=== PATIENT | male | born 1970 | race African-American/Black ===

== ENCOUNTER 2018-02-15 08:59 | Inpatient (IN) | payer OTHER ==
[2018-02-15 10:10] VITALS: BMI 28.1
--- NOTE | 2018-02-15 13:33 | HP ---
CIWA Score - CIWA Score Nausea/Vomitin-Mild Nausea/No Vomiting Muscle Tremors: 4-Moderate,w/Arms Extend Anxiety: 4-Mod. Anxious/Guarded Agitation: 4-Moderately Restless Paroxysmal Sweats: 1-Minimal Palms Moist Orientation: 1-Uncertain about Date Tacttile Disturbances: 1-Very Mild Itch/Numbness Auditory Disturbances: 0-None Visual Disturbances: 0-None Headache: 2-Mild CIWA-Ar Total Score: 18 Admission ROS BHS - HPI Chief Complaint: alcohol withdrawal sx Allergies/Adverse Reactions: Allergies Allergy/AdvReac Type Severity Reaction Status Date / Time No Known Allergies Allergy Verified 02/15/18 10:25 History of Present Illness: 47 years old male with long history of alcohol nicotine dependence has depression hypertension is admitted to detox Exam Limitations: No Limitations - Ebola screening Have you traveled outside of the country in the last 21 days: No Have you had contact with anyone from an Ebola affected area: No Have you been sick,other than usual withdrawal symptoms: No Do you have a fever: No - Review of Systems Constitutional: Changes in sleep, Weight Stable EENT: reports: No Symptoms Reported Respiratory: reports: No Symptoms reported Cardiac: reports: No Symptoms Reported GI: reports: Nausea, Poor Fluid Intake, Abdominal cramping : reports: No Symptoms Reported Musculoskeletal: reports: No Symptoms Reported Integumentary: reports: No Symptoms Reported Neuro: reports: Tremors Endocrine: reports: No Symptoms Reported Hematology: reports: No Symptoms Reported Psychiatric: reports: Judgement Intact, Anxious, Depressed Other Systems: Reviewed and Negative Patient History - Patient Medical History Hx Anemia: No Hx Asthma: No Hx Chronic Obstructive Pulmonary Disease (COPD): No Hx Cancer: No Hx Cardiac Disorders: No Hx Congestive Heart Failure: No Hx Hypertension: Yes (non compliant with meds.) Hx Hypercholesterolemia: No Hx Pacemaker: No HX Cerebrovascular Accident: No Hx Seizures: No Hx Dementia: No Hx Diabetes: No Hx Gastrointestinal Disorders: No Hx Liver Disease: No Hx Genitourinary Disorders: No Hx Sexually Transmitted Disorders: Yes (Tx for syphillis and gonnorhea.) Hx Renal Disease (ESRD): No Hx Thyroid Disease: No Hx Human Immunodeficiency Virus (HIV): No Hx Hepatitis C: No Hx Depression: Yes Hx Suicide Attempt: No Hx Bipolar Disorder: No Hx Schizophrenia: No - Patient Surgical History Past Surgical History: Yes Hx Orthopedic Surgery: Yes (L wrist sx and L knee sx in [facility]2014) Anesthesia Reaction: No - PPD History Previous Implant?: Yes Documented Results: Negative w/o proof Implanted On Prior [facility] Admission?: No PPD to be Administered?: Yes - Smoking Cessation Smoking history: Current some day smoker Have you smoked in the past 12 months: Yes Aproximately how many cigarettes per day: 3 Cigars Per Day: 0 Hx Chewing Tobacco Use: No Initiated information on smoking cessation: Yes 'Breaking Loose' booklet given: 02/15/18 - Substance & Tx. History Hx Alcohol Use: Yes Hx Substance Use: No Substance Use Type: Alcohol Hx Substance Use Treatment: Yes (2015 [facility]) - Substances Abused Alcohol Route: Oral Frequency: Daily Amount used: 2 pints vodka Age of first use: 12 Date of Last Use: 02/15/18 Family Disease History - Family Disease History Family Disease History: Other: Father (deceasd) Other Family History: only child Admission Physical Exam [facility] - Vital Signs Vital Signs: Vital Signs - 24 hr 02/15/18 10:08 Temperature 98.6 F Pulse Rate 84 Respiratory 20 Rate Blood Pressure 170/112 - Physical General Appearance: Yes: Appropriately Dressed, Mild Distress, Tremorous, Irritable, Sweating, Anxious HEENTM: Yes: Hearing grossly Normal, Normocephalic, Normal Voice Respiratory: Yes: Chest Non-Tender, Lungs Clear, Normal Breath Sounds, No Respiratory Distress, No Accessory Muscle Use Neck: Yes: Supple, Trachea in good position Breast: Yes: Breasts Symetrical, No Discharge Cardiology: Yes: Regular Rhythm, Regular Rate, S1, S2 Abdominal: Yes: Normal Bowel Sounds, Non Tender, Flat Genitourinary: Yes: Within Normal Limits Back: Yes: Normal Inspection Musculoskeletal: Yes: full range of Motion, Gait Steady Extremities: Yes: Normal Inspection, Normal Range of Motion, Non-Tender, Tremors Neurological: Yes: Alert, Motor Strength 5/5, Normal Response, Depressed Affect Integumentary: Yes: Warm Lymphatic: Yes: Within Normal Limits - Diagnostic (1) Alcohol dependence with uncomplicated withdrawal Current Visit: Yes Status: Acute (2) Hypertension Current Visit: Yes Status: Chronic Qualifiers: Hypertension type: essential hypertension Qualified Code(s): I10 - Essential (primary) hypertension (3) Nicotine dependence Current Visit: Yes Status: Acute Qualifiers: Nicotine product type: cigarettes Substance use status: in withdrawal Qualified Code(s): F17.213 - Nicotine dependence, cigarettes, with withdrawal (4) Depression (emotion) Current Visit: Yes Status: Acute Qualifiers: Depression Type: dysthymia Qualified Code(s): F34.1 - Dysthymic disorder Cleared for Admission [facility] - Detox or Rehab [facility] Level of Care: Medically Managed Detox Regimen/Protocol: Librium S Breath Alcohol Content Breath Alcohol Content: 0.276 Urine Drug Screen - Results Drug Screen Negative: Yes
[2018-02-15] MEDS ORDERED: ACETAMINOPHEN 325 MG TABLET (FP) PO PRN (13:36)
[2018-02-15] MEDS ORDERED: LOPERAMIDE HCL 2 MG CAPSULE PO PRN (13:36)
[2018-02-15] MEDS ORDERED: MAGNESIUM CITRATE 300 ML BOTTLE PO PRN (13:36)
[2018-02-15] MEDS ORDERED: IBUPROFEN 400 MG TABLET (FP) PO PRN (13:36)
[2018-02-15] MEDS ORDERED: MAG HYDROX/AL HYDROX/SIMETH 30 ML UNIT-DOSE CUP PO PRN (13:36)
[2018-02-15] MEDS ORDERED: NICOTINE POLACRILEX 2 MG GUM BUC PRN (13:36)
[2018-02-15] MEDS ORDERED: MENTHOL/PHENOL 1 EACH UD MM PRN (13:36)
[2018-02-15] MEDS ORDERED: P-EPHED 60MG/TRIPROLIDI 2.5MG TABLET PO PRN (13:36)
[2018-02-15] MEDS ORDERED: guaiFENesin/D-METHORPHAN HB 10 ML UNIT-DOSE CUPS PO PRN (13:36)
[2018-02-15] MEDS ORDERED: chlordiazePOXIDE HCL 25 MG CAPSULE PO PRN (13:36)
[2018-02-15] MEDS ORDERED: MAGNESIUM HYDROX 2400MG/30ML ORAL SUSPENSION 30 ML CUP PO PRN (13:36)
[2018-02-15] MEDS: amLODIPine BESYLATE 10 MG TABLET (FP) PO SCH (15:51)
[2018-02-15] MEDS: LISINOPRIL 10 MG TABLET (FP) PO SCH ×2 (15:51→22:14)
[2018-02-15] MEDS: NICOTINE 14 MG/24 HOURS TOPICAL PATCH TD SCH (15:51)
[2018-02-15] MEDS: chlordiazePOXIDE HCL 25 MG CAPSULE PO SCH ×2 (17:22→22:14)
--- NOTE | 2018-02-15 17:27 | CONSULT ---
[facility] Psychiatric Consult - Data Date of interview: 02/15/18 Admission source: [facility] Identifying data: Patient is a 47 year old single male, without kids, unemployed (receiving food stamps), and residing with mother. This is patient's first admission to detox at [facility]. Pt. admitted to for alcohol dependence. Substance Abuse History: Smoking Cessation. Smoking history: Current some day smoker. Have you smoked in the past 12 months: Yes. Aproximately how many cigarettes per day: 3. Cigars Per Day: 0. Hx Chewing Tobacco Use: No. Initiated information on smoking cessation: Yes. 'Breaking Loose' booklet given : 02/15/18. - Substance & Tx. History. Hx Alcohol Use: Yes. Hx Substance Use : No. Substance Use Type: Alcohol. Hx Substance Use Treatment: Yes (2015 [facility]). - Substances Abused. Alcohol. Route: Oral. Frequency: Daily. Amount used: 2 pints vodka. Age of first use: 12. Date of Last Use: 02/15/18 Medical History: Tx for syphillis and gonnorhea, hypertension, L wrist sx and L knee sx in [facility]2014 Psychiatric History: Patient denies h/o psychiatric hospitalizations, outpatient care, and suicide attempt. Physical/Sexual Abuse/Trauma History: Denies. Mental Status Exam - Mental Status Exam Alert and Oriented to: Time, Place, Person Cognitive Function: Good Patient Appearance: Well Groomed Mood: Hopeful Affect: Mood Congruent Patient Behavior: Cooperative Speech Pattern: Appropriate Voice Loudness: Normal Thought Process: Intact, Goal Oriented Thought Disorder: Not Present Hallucinations: Denies Suicidal Ideation: Denies Homicidal Ideation: Denies Insight/Judgement: Poor Sleep: Fair Appetite: Fair Muscle strength/Tone: Normal Gait/Station: Normal Psychiatric Findings - Problem List ([place] 1, 2,3) (1) Alcohol dependence with uncomplicated withdrawal Current Visit: Yes Status: Acute (2) Nicotine dependence Current Visit: Yes Status: Chronic Qualifiers: Nicotine product type: cigarettes Substance use status: in withdrawal Qualified Code(s): F17.213 - Nicotine dependence, cigarettes, with withdrawal - Initial Treatment Plan Initial Treatment Plan: Psychoeducation provided. Detoxification in progress. Observation.
[2018-02-15] MEDS: THIAMINE HCL 100 MG TABLET (FP) PO SCH (22:14)
[2018-02-16] MEDS: chlordiazePOXIDE HCL 25 MG CAPSULE PO SCH ×4 (06:42→22:39)
[2018-02-16] MEDS ORDERED: ONDANSETRON *ODT* 4 MG TABLET SL ONE (09:05)
[2018-02-16] MEDS ORDERED: chlordiazePOXIDE HCL 25 MG CAPSULE PO ONE (09:06)
[2018-02-16] MEDS: LABETALOL HCL 100 MG TABLET (FP) PO SCH ×3 (09:30→22:40)
[2018-02-16] MEDS: LISINOPRIL 10 MG TABLET (FP) PO SCH ×2 (09:30→22:40)
[2018-02-16] MEDS: amLODIPine BESYLATE 10 MG TABLET (FP) PO SCH (09:30)
[2018-02-16 10:25] LABS: HEMOGLOBIN 12.1 GM/dL (11.7-16.9); MCH 35.3 pg (25.7-33.7); MCHC 33.5 g/dl (32.0-35.9); MEAN CELL VOLUME 105.2 fl (80-96); MEAN PLT VOLUME 9.8 fl (7.5-11.1); PLATELET COUNT 106 K/MM3 (134-434); RBC 3.42 M/mm3 (4.00-5.60); RDW 14.5 % (11.9-15.9); WHITE BLOOD COUNT 2.4 K/mm3 (4.0-10.0)
[2018-02-16 10:53] LABS: CHLORIDE 104 mmol/L (98-107); POTASSIUM 3.3 mmol/L (3.5-5.1); SODIUM 143 mmol/L (136-145)
[2018-02-16 11:13] LABS: ALBUMIN 3.9 g/dl (3.4-5.0); ALK PHOS 81 U/L (45-117); ANION GAP 11 (8-16); BILIRUBIN,TOTAL 0.5 mg/dL (0.2-1.0); BLOOD UREA NITROGEN 7 mg/dL (7-18); CALCIUM 8.5 mg/dL (8.5-10.1); CO2 28 mmol/L (21-32); CREATININE 0.9 mg/dL (0.7-1.3); GLUCOSE,RANDOM 107 mg/dL (74-106); SGOT/AST 288 U/L (15-37); SGPT/ALT 141 U/L (12-78)
[2018-02-16] MEDS: PRENATAL VITAMINS W/ FOLIC ACID TABLET (FP) PO SCH (11:50)
[2018-02-16] MEDS: NICOTINE 14 MG/24 HOURS TOPICAL PATCH TD SCH (11:53)
--- NOTE | 2018-02-16 11:55 | EKG ---
Test Reason : Blood Pressure : / mmHG Vent. Rate : 069 BPM Atrial Rate : 069 BPM P-R Int : 186 ms QRS Dur : 098 ms QT Int : 434 ms P-R-T Axes : 066 026 019 degrees QTc Int : 465 ms NORMAL SINUS RHYTHM POSSIBLE LEFT ATRIAL ENLARGEMENT BORDERLINE ECG NO PREVIOUS ECGS AVAILABLE Confirmed by REN BECKER, BETTIE ([id number]) on 02/16/2018 11:54:45 AM Referred By: Confirmed By:BETTIE MCCLURE MD
--- NOTE | 2018-02-16 12:14 | PN ---
[facility] CIWA - CIWA Score Nausea/Vomitin Muscle Tremors: 3 Anxiety: 3 Agitation: 3 Paroxysmal Sweats: 1-Minimal Palms Moist Orientation: 0-Oriented Tacttile Disturbances: 1-Very Mild Itch/Numbness Auditory Disturbances: 1-Very Mild Visual Disturbances: 0-None Headache: 2-Mild CIWA-Ar Total Score: 17 S Progress Note (SOAP) Subjective: alert,irritable,anxious,interrupted sleep,tremor Objective: 02/16/18 12:07 Vital Signs Temperature 100.4 F H 02/16/18 09:41 Pulse Rate 92 H 02/16/18 10:30 Respiratory Rate 18 02/16/18 10:30 Blood Pressure 179/106 02/16/18 09:41 O2 Sat by Pulse Oximetry (%) ekg nsr,prolong qt 434/465 no chest pain,no sob,no dizziness Laboratory Last Values WBC 2.4 K/mm3 (4.0-10.0) L 02/16/18 06:00 RBC 3.42 M/mm3 (4.00-5.60) L 02/16/18 06:00 Hgb 12.1 GM/dL (11.7-16.9) 02/16/18 06:00 Hct 36.0 % (35.4-49) 02/16/18 06:00 MCV 105.2 fl (80-96) H 02/16/18 06:00 MCH 35.3 pg (25.7-33.7) H 02/16/18 06:00 MCHC 33.5 g/dl (32.0-35.9) 02/16/18 06:00 RDW 14.5 % (11.9-15.9) 02/16/18 06:00 Plt Count 106 K/MM3 (134-434) L 02/16/18 06:00 MPV 9.8 fl (7.5-11.1) 02/16/18 06:00 Sodium 143 mmol/L (136-145) 02/16/18 06:00 Potassium 3.3 mmol/L (3.5-5.1) L 02/16/18 06:00 Chloride 104 mmol/L (98-107) 02/16/18 06:00 Carbon Dioxide 28 mmol/L (21-32) 02/16/18 06:00 Anion Gap 11 (8-16) 02/16/18 06:00 BUN 7 mg/dL (7-18) 02/16/18 06:00 Creatinine 0.9 mg/dL (0.7-1.3) 02/16/18 06:00 Creat Clearance w eGFR > 60 (>60) 02/16/18 06:00 Random Glucose 107 mg/dL (74-106) H 02/16/18 06:00 Calcium 8.5 mg/dL (8.5-10.1) 02/16/18 06:00 Total Bilirubin 0.5 mg/dL (0.2-1.0) 02/16/18 06:00 AST 288 U/L (15-37) H 02/16/18 06:00 ALT 141 U/L (12-78) H 02/16/18 06:00 Alkaline Phosphatase 81 U/L (45-117) 02/16/18 06:00 Total Protein 7.0 g/dl (6.4-8.2) 02/16/18 06:00 Albumin 3.9 g/dl (3.4-5.0) 02/16/18 06:00 RPR Titer Nonreactive (NONREACTIVE) 02/16/18 06:00 Assessment: 02/16/18 12:10 withdrawal symptom Plan: continue detox,leucopenia wbc 2.400,repeat cbc in am,ast 288,[id number] repeat alt,ast,inr in am.d/c tylenol,
[2018-02-16] MEDS ORDERED: cloNIDine HCL 0.1 MG TABLET PO ONE (15:12)
[2018-02-16] MEDS: THIAMINE HCL 100 MG TABLET (FP) PO SCH (22:39)
[2018-02-17] MEDS: chlordiazePOXIDE HCL 25 MG CAPSULE PO SCH ×2 (06:01→10:59)
[2018-02-17] MEDS: LABETALOL HCL 100 MG TABLET (FP) PO SCH ×3 (07:19→22:19)
[2018-02-17 10:59] LABS: SGOT/AST 95 U/L (15-37); SGPT/ALT 101 U/L (12-78)
[2018-02-17] MEDS: NICOTINE 14 MG/24 HOURS TOPICAL PATCH TD SCH (10:59)
[2018-02-17] MEDS: PRENATAL VITAMINS W/ FOLIC ACID TABLET (FP) PO SCH (10:59)
[2018-02-17] MEDS: amLODIPine BESYLATE 10 MG TABLET (FP) PO SCH (10:59)
[2018-02-17] MEDS: LISINOPRIL 10 MG TABLET (FP) PO SCH ×2 (10:59→22:18)
[2018-02-17 11:18] LABS: INR 1.04 (0.82-1.09); PROTHROMBIN TIME (PATIENT) 11.7 SEC (9.7-13.0)
--- NOTE | 2018-02-17 11:47 | PN ---
S CIWA - CIWA Score Nausea/Vomitin Muscle Tremors: 3 Anxiety: 3 Agitation: 3 Paroxysmal Sweats: 1-Minimal Palms Moist Orientation: 0-Oriented Tacttile Disturbances: 1-Very Mild Itch/Numbness Auditory Disturbances: 1-Very Mild Visual Disturbances: 0-None Headache: 2-Mild CIWA-Ar Total Score: 17 BHS Progress Note (SOAP) Subjective: alert,irritable,anxious,tremor,interrupted sleep old scar in left neck Objective: 02/17/18 11:43 Vital Signs Temperature 97.3 F L 02/17/18 09:19 Pulse Rate 92 H 02/17/18 09:19 Respiratory Rate 18 02/17/18 09:19 Blood Pressure 107/71 02/17/18 09:19 O2 Sat by Pulse Oximetry (%) Laboratory Results - last 24 hr 02/15/18 02/17/18 02/17/18 15:00 08:00 08:00 PT with INR 11.70 INR 1.04 AST 95 H D ALT 101 H D HIV 1&2 Antibody Screen Negative HIV P24 Antigen Negative Assessment: 02/17/18 11:46 withdrawal symptom Plan: continue detox,k dur 20 meq po bid,repeat cbc,cmp in am
[2018-02-17] MEDS: BACITRACIN 0.9 GM PACKET TP SCH ×2 (12:04→22:18)
[2018-02-17] MEDS: POTASSIUM CHLORIDE TABS 20 MEQ TABLET.ER (FP) PO SCH ×2 (12:05→22:18)
[2018-02-17 17:02] LABS: URINE APPEARANCE CLOUDY; URINE BLOOD NEGATIVE (NEGATIVE); URINE COLOR AMBER; URINE GLUCOSE (UA) NEGATIVE (NEGATIVE); URINE KETONE TRACE (NEGATIVE); URINE LEUK ESTERASE NEGATIVE (NEGATIVE); URINE NITRITE NEGATIVE (NEGATIVE)
[2018-02-17] MEDS: chlordiazePOXIDE 5 MG CAPSULE PO SCH ×2 (17:41→22:18)
[2018-02-17 18:01] LABS: URINE PROTEIN 2+ (NEGATIVE)
[2018-02-17 18:04] LABS: URINE HYALINE CAST 33 /lpf; URINE MUCUS MANY
[2018-02-17] MEDS: THIAMINE HCL 100 MG TABLET (FP) PO SCH (22:18)
[2018-02-17] MEDS: MELATONIN 5 MG TABLETS PO PRN (22:21)
[2018-02-18] MEDS: chlordiazePOXIDE 5 MG CAPSULE PO SCH ×2 (05:42→10:12)
[2018-02-18] MEDS: LABETALOL HCL 100 MG TABLET (FP) PO SCH ×3 (05:42→22:23)
[2018-02-18] MEDS: amLODIPine BESYLATE 10 MG TABLET (FP) PO SCH (10:12)
[2018-02-18] MEDS: BACITRACIN 0.9 GM PACKET TP SCH ×2 (10:12→22:23)
[2018-02-18] MEDS: PRENATAL VITAMINS W/ FOLIC ACID TABLET (FP) PO SCH (10:12)
[2018-02-18] MEDS: POTASSIUM CHLORIDE TABS 20 MEQ TABLET.ER (FP) PO SCH ×2 (10:12→22:23)
[2018-02-18] MEDS: LISINOPRIL 10 MG TABLET (FP) PO SCH ×2 (10:13→22:26)
[2018-02-18] MEDS: NICOTINE 14 MG/24 HOURS TOPICAL PATCH TD SCH (10:14)
[2018-02-18 10:27] LABS: HEMATOCRIT 37.9 % (35.4-49); HEMOGLOBIN 12.8 GM/dL (11.7-16.9); MCH 35.1 pg (25.7-33.7); MCHC 33.7 g/dl (32.0-35.9); MEAN CELL VOLUME 104.1 fl (80-96); MEAN PLT VOLUME 10.3 fl (7.5-11.1); PLATELET COUNT 97 K/MM3 (134-434); RBC 3.64 M/mm3 (4.00-5.60); RDW 14.3 % (11.9-15.9); WHITE BLOOD COUNT 4.8 K/mm3 (4.0-10.0)
[2018-02-18 10:38] LABS: ALBUMIN 3.2 g/dl (3.4-5.0); ALK PHOS 96 U/L (45-117); ANION GAP 8 (8-16); BILIRUBIN,TOTAL 0.5 mg/dL (0.2-1.0); BLOOD UREA NITROGEN 10 mg/dL (7-18); CHLORIDE 99 mmol/L (98-107); CO2 31 mmol/L (21-32); CREATININE 0.8 mg/dL (0.7-1.3); GLUCOSE,RANDOM 120 mg/dL (74-106); POTASSIUM 3.4 mmol/L (3.5-5.1); SGOT/AST 51 U/L (15-37); SGPT/ALT 67 U/L (12-78); SODIUM 138 mmol/L (136-145)
--- NOTE | 2018-02-18 12:53 | PN ---
S Progress Note (SOAP) Subjective: alert,irritable,interrupted sleep Objective: 02/18/18 12:52 Vital Signs Temperature 98.2 F 02/18/18 11:38 Pulse Rate 84 02/18/18 11:38 Respiratory Rate 18 02/18/18 11:38 Blood Pressure 142/90 02/18/18 11:38 O2 Sat by Pulse Oximetry (%) Assessment: 02/18/18 12:52 withdrawal symptom Plan: continue detox,discharge in am
[2018-02-18] MEDS: chlordiazePOXIDE HCL 10 MG CAPSULE PO SCH ×2 (18:10→22:23)
[2018-02-18] MEDS: MELATONIN 5 MG TABLETS PO PRN (22:23)
[2018-02-18] MEDS: THIAMINE HCL 100 MG TABLET (FP) PO SCH (22:23)
[2018-02-19] MEDS: chlordiazePOXIDE HCL 10 MG CAPSULE PO SCH (05:37)
[2018-02-19] MEDS: LABETALOL HCL 100 MG TABLET (FP) PO SCH (05:37)
[2018-02-19 07:04] VITALS: BP 143/85; PULSE 20; TEMP 98.2
[2018-02-19] MEDS: PRENATAL VITAMINS W/ FOLIC ACID TABLET (FP) PO SCH (09:15)
[2018-02-19] MEDS: POTASSIUM CHLORIDE TABS 20 MEQ TABLET.ER (FP) PO SCH (09:16)
[2018-02-19] MEDS: amLODIPine BESYLATE 10 MG TABLET (FP) PO SCH (09:16)
--- NOTE | 2018-02-19 09:21 | PN ---
S Progress Note (SOAP) Subjective: alert,no complaint Objective: 02/19/18 09:20 Vital Signs Temperature 98.2 F 02/19/18 07:04 Pulse Rate 20 L 02/19/18 07:04 Respiratory Rate 18 02/19/18 07:04 Blood Pressure 143/85 02/19/18 07:04 O2 Sat by Pulse Oximetry (%) Assessment: 02/19/18 09:20 detox completed,no withdrawal symptom Plan: discharge today,follow up with after care program as arrangement
--- NOTE | 2018-02-19 09:25 | DS ---
[facility] Detox Discharge Summary Admission Date: 02/15/18 Discharge Date: 02/19/18 - History Present History: Alcohol Dependence Additional Comments: follow up with after care program as arrangement Pertinent Past History: hypertension nicotine dependence - Physical Exam Results Vital Signs: Vital Signs Temperature 98.2 F 02/19/18 07:04 Pulse Rate 20 L 02/19/18 07:04 Respiratory Rate 18 02/19/18 07:04 Blood Pressure 143/85 02/19/18 07:04 O2 Sat by Pulse Oximetry (%) Pertinent Admission Physical Exam Findings: withdrawal signs and symptom Laboratory Last Values WBC 4.8 K/mm3 (4.0-10.0) D 02/18/18 07:30 RBC 3.64 M/mm3 (4.00-5.60) L 02/18/18 07:30 Hgb 12.8 GM/dL (11.7-16.9) 02/18/18 07:30 Hct 37.9 % (35.4-49) 02/18/18 07:30 MCV 104.1 fl (80-96) H 02/18/18 07:30 MCH 35.1 pg (25.7-33.7) H 02/18/18 07:30 MCHC 33.7 g/dl (32.0-35.9) 02/18/18 07:30 RDW 14.3 % (11.9-15.9) 02/18/18 07:30 Plt Count 97 K/MM3 (134-434) L 02/18/18 07:30 MPV 10.3 fl (7.5-11.1) 02/18/18 07:30 PT with INR 11.70 SEC (9.7-13.0) 02/17/18 08:00 INR 1.04 (0.82-1.09) 02/17/18 08:00 Sodium 138 mmol/L (136-145) 02/18/18 07:30 Potassium 3.4 mmol/L (3.5-5.1) L 02/18/18 07:30 Chloride 99 mmol/L (98-107) 02/18/18 07:30 Carbon Dioxide 31 mmol/L (21-32) 02/18/18 07:30 Anion Gap 8 (8-16) 02/18/18 07:30 BUN 10 mg/dL (7-18) D 02/18/18 07:30 Creatinine 0.8 mg/dL (0.7-1.3) 02/18/18 07:30 Creat Clearance w eGFR > 60 (>60) 02/18/18 07:30 Random Glucose 120 mg/dL (74-106) H 02/18/18 07:30 Calcium 9.0 mg/dL (8.5-10.1) 02/18/18 07:30 Total Bilirubin 0.5 mg/dL (0.2-1.0) 02/18/18 07:30 AST 51 U/L (15-37) H D 02/18/18 07:30 ALT 67 U/L (12-78) D 02/18/18 07:30 Alkaline Phosphatase 96 U/L (45-117) 02/18/18 07:30 Total Protein 6.0 g/dl (6.4-8.2) L 02/18/18 07:30 Albumin 3.2 g/dl (3.4-5.0) L 02/18/18 07:30 Urine Color Ca 02/17/18 15:15 Urine Appearance Cloudy 02/17/18 15:15 Urine pH 5.0 (5.0-8.0) 02/17/18 15:15 Ur Specific [place] 1.032 (1.001-1.035) 02/17/18 15:15 Urine Protein 2+ (NEGATIVE) H 02/17/18 15:15 Urine Glucose (UA) Negative (NEGATIVE) 02/17/18 15:15 Urine Ketones Trace (NEGATIVE) H 02/17/18 15:15 Urine Blood Negative (NEGATIVE) 02/17/18 15:15 Urine Nitrite Negative (NEGATIVE) 02/17/18 15:15 Urine Bilirubin 2.0 (<2.0 mg/dL) 02/17/18 15:15 Urine Urobilinogen 2.0 mg/dL (0.2-1.0) 02/17/18 15:15 Ur Leukocyte Esterase Negative (NEGATIVE) 02/17/18 15:15 Urine WBC (Auto) 3 /hpf (3-5) 02/17/18 15:15 Urine RBC (Auto) 1 /hpf (0-3) 02/17/18 15:15 Hyaline Casts 33 /lpf 02/17/18 15:15 Urine Mucus Many 02/17/18 15:15 RPR Titer Nonreactive (NONREACTIVE) 02/16/18 06:00 HIV 1&2 Antibody Screen Negative 02/15/18 15:00 HIV P24 Antigen Negative 02/15/18 15:00 Vital Signs Temperature 98.2 F 02/19/18 07:04 Pulse Rate 20 L 02/19/18 07:04 Respiratory Rate 18 02/19/18 07:04 Blood Pressure 143/85 02/19/18 07:04 O2 Sat by Pulse Oximetry (%) - Treatment Hospital Course: Detox Protocol Followed, Detoxed Safely, Responded well, Discharged Condition Good, Rehab Referral Accepted Patient has Accepted a Rehab Referral to: [facility] - Medication Discharge Medications: Ambulatory Orders Amlodipine Besylate [Norvasc -] 10 mg PO DAILY #30 tablet 02/18/18 Labetalol HCl [Normodyne -] 100 mg PO TID #90 tablet 02/18/18 Lisinopril [Prinivil] 10 mg PO BID #60 tablet 02/18/18 Potassium Chloride [K-Dur -] 20 meq PO BID #10 tablet.er 02/18/18 - Diagnosis (1) Alcohol dependence with uncomplicated withdrawal Current Visit: Yes Status: Acute (2) Hypertension Current Visit: Yes Status: Chronic Qualifiers: Hypertension type: essential hypertension Qualified Code(s): I10 - Essential (primary) hypertension (3) Nicotine dependence Current Visit: Yes Status: Chronic Qualifiers: Nicotine product type: cigarettes Substance use status: in withdrawal Qualified Code(s): F17.213 - Nicotine dependence, cigarettes, with withdrawal (4) Substance induced mood disorder Current Visit: Yes Status: Suspected (5) Hypokalemia Current Visit: Yes Status: Acute - AMA Did Patient Leave Against Medical Advice: No
== END 2018-02-19 09:54 | disposition home or self-care (01) | DRG 775 ==
LOC: YASAS 08:59 → Y6N 13:57
PROVIDERS: ADMIT Surgery; ATTEND Surgery
PROC: HZ2ZZZZ Detoxification Services for Substance Abuse Treatment (ICD-10-PCS; principal; 2018-02-15)
DX: F10.230 Alcohol dependence with withdrawal, uncomplicated (principal); F17.213 Nicotine dependence, cigarettes, with withdrawal; F19.24 Other psychoactive substance dependence with psychoactive substance-induced mood disorder; F34.1 Dysthymic disorder; I10 Essential (primary) hypertension; E87.6 Hypokalemia; Z87.438 Personal history of other diseases of male genital organs; Z91.14 Patient's other noncompliance with medication regimen
CPT/HCPCS: 36415; 80053; 81003; 81015; 84450; 84460; 85027; 85610; 86593; 87389; 93005; 93010; J0735; Q0162

== ENCOUNTER 2019-10-19 21:32 | Inpatient (IN) | payer OTHER ==
[2019-10-19 22:40] VITALS: BMI 32.3
--- NOTE | 2019-10-19 23:15 | HP ---
CIWA Score Nausea/Vomitin Muscle Tremors: 4-Moderate,w/Arms Extend Anxiety: 4-Mod. Anxious/Guarded Agitation: 4-Moderately Restless Paroxysmal Sweats: 2 Orientation: 0-Oriented Tacttile Disturbances: 0-None Auditory Disturbances: 0-None Visual Disturbances: 0-None Headache: 3-Moderate CIWA-Ar Total Score: 20 - Admission Criteria [facility] Guidelines: Admission for Medically Managed Detox: Requires at least one of the followin. CIWA greater than 12 2. Seizures within the past 24 hours 3. Delirium tremens within the past 24 hours 4. Hallucinations within the past 24 hours 5. Acute intervention needed for co occurring medical disorder 6. Acute intervention needed for co occurring psychiatric disorder 7. Severe withdrawal that cannot be handled at a lower level of care (continued vomiting, continued diarrhea, abnormal vital signs) requiring intravenous medication and/or fluids 8. Admitting History and Physical - Smoking History Smoking history: Current some day smoker Have you smoked in the past 12 months: Yes Aproximately how many cigarettes per day: 3 - Alcohol/Substance Use Hx Alcohol Use: Yes Admission ROS [facility] Chief Complaint: Seeking admission to detox from alcohol Allergies/Adverse Reactions: Allergies Allergy/AdvReac Type Severity Reaction Status Date / Time No Known Allergies Allergy Verified 02/15/18 10:25 History of Present Illness: 49 years old male with 35 years of alcohol dependence is seeking admission to detox. Patient reports that his last admission was at [facility] for 2 weeks in February 2019. His last admission at [facility] was for the period 02/15/2018-02/19/2018 and he reports 18 months of sobriety. He has medical history of hypertension, syphilis, gonorrhea and alcohol related seizures. He reports that he had an episode of alcohol related seizure and blackout this morning. He went to [facility] emergency room and was referred to detox here. He reports psych. history of depression and denies suicidal ideation at this time Exam Limitations: No Limitations - Ebola screening Have you traveled outside of the country in the last 21 days: No Have you been sick,other than usual withdrawal symptoms: No Do you have a fever: No - Review of Systems Constitutional: Chills, Malaise, Night Sweats, Changes in sleep EENT: reports: No Symptoms Reported Respiratory: reports: No Symptoms reported Cardiac: reports: No Symptoms Reported GI: reports: Diarrhea (x 2), Nausea, Poor Appetite, Poor Fluid Intake, Vomiting (x 6), Abdominal cramping : reports: No Symptoms Reported Musculoskeletal: reports: Back Pain Integumentary: reports: Dryness, Flushing Neuro: reports: Headache, Tremors Endocrine: reports: No Symptoms Reported Hematology: reports: No Symptoms Reported Psychiatric: reports: Mood/Affect Appropiate, Orientated x3 Other Systems: Reviewed and Negative Patient History - Patient Medical History Hx Anemia: No Hx Asthma: No Hx Chronic Obstructive Pulmonary Disease (COPD): No Hx Cancer: No Hx Cardiac Disorders: No Hx Congestive Heart Failure: No Hx Hypertension: Yes (non compliant with meds.) Hx Hypercholesterolemia: No Hx Pacemaker: No HX Cerebrovascular Accident: No Hx Seizures: No Hx Dementia: No Hx Diabetes: No Hx Gastrointestinal Disorders: No Hx Liver Disease: No Hx Genitourinary Disorders: No Hx Sexually Transmitted Disorders: Yes (Tx for syphillis and gonnorhea.) Hx Renal Disease (ESRD): No Hx Thyroid Disease: No Hx Human Immunodeficiency Virus (HIV): No Hx Hepatitis C: No Hx Depression: Yes Hx Suicide Attempt: No (Denies suicidal ideation at this time) Hx Bipolar Disorder: No Hx Schizophrenia: No - Patient Surgical History Past Surgical History: Yes Hx Orthopedic Surgery: Yes (L wrist sx and L knee sx in [facility] 2013) Anesthesia Reaction: No - PPD History Previous Implant?: Yes Documented Results: Negative w/o proof Implanted On Prior [facility] Admission?: Yes Date: 02/17/18 PPD to be Administered?: Yes - Reproductive History Patient is a Female of Child Bearing Age (11 -55 yrs old): No (male) - Smoking Cessation Smoking history: Former smoker Have you smoked in the past 12 months: No Aproximately how many cigarettes per day: 0 Cigars Per Day: 0 Hx Chewing Tobacco Use: No Initiated information on smoking cessation: No - Substance & Tx. History Hx Alcohol Use: Yes Hx Substance Use: No Substance Use Type: Alcohol Hx Substance Use Treatment: Yes ( [facility]) - Substances abused Alcohol Substance route: Oral Frequency: Daily Amount used: 2 pints / 6 packs of beer Age of first use: 14 Date of last use: 10/19/19 Admission Physical Exam BHS - Vital Signs Vital Signs: Vital Signs - 24 hr 10/19/19 22:17 Temperature 99.1 F Pulse Rate 100 H Respiratory 16 Rate Blood Pressure 144/103 H - Physical General Appearance: Yes: Within Normal Limits, Moderate Distress, Tremorous HEENTM: Yes: Within Normal Limits Respiratory: Yes: Lungs Clear, Normal Breath Sounds, No Respiratory Distress Neck: Yes: Within Normal Limits Breast: Yes: Breast Exam Deferred Cardiology: Yes: Tachycardia Abdominal: Yes: Normal Bowel Sounds Genitourinary: Yes: Within Normal Limits Back: Yes: Normal Inspection Musculoskeletal: Yes: Back pain Extremities: Yes: Tremors Neurological: Yes: Within Normal Limits Integumentary: Yes: Warm Lymphatic: Yes: Within Normal Limits - Diagnostic (1) Alcohol related seizure Current Visit: Yes Status: Chronic (2) Syphilis Current Visit: Yes Status: Chronic (3) Gonorrhea Current Visit: Yes Status: Chronic (4) Alcohol dependence with uncomplicated withdrawal Current Visit: Yes Status: Acute (5) Hypertension Current Visit: Yes Status: Chronic Qualifiers: Hypertension type: essential hypertension Qualified Code(s): I10 - Essential (primary) hypertension Cleared for Admission [facility] - Detox or Rehab [facility] Level of Care: Medically Managed Detox Regimen/Protocol: Librium Claeared for Rehab Admission: No Breathalyzer - Breathalyzer Breathalyzer: 0.113 Inpatient Rehab Admission - Rehab Decision to Admit Inpatient rehab admission?: No
[2019-10-19] MEDS ORDERED: chlordiazePOXIDE HCL 25 MG CAPSULE PO PRN (23:33)
[2019-10-19] MEDS ORDERED: ACETAMINOPHEN 325 MG TABLET (FP) PO PRN ×2 (23:33)
[2019-10-19] MEDS ORDERED: BISMUTH SUBSALICYLATE 524 MG/30 ML UD PO PRN (23:33)
[2019-10-19] MEDS ORDERED: MELATONIN 5 MG TABLETS PO PRN (23:33)
[2019-10-19] MEDS ORDERED: MAGNESIUM HYDROX 2400MG/30ML ORAL SUSPENSION 30 ML CUP PO PRN (23:33)
[2019-10-19] MEDS ORDERED: MAGNESIUM CITRATE 300 ML BOTTLE PO PRN (23:33)
[2019-10-19] MEDS ORDERED: hydrOXYzine PAMOATE 25 MG CAPSULE (FP) PO PRN (23:33)
[2019-10-19] MEDS ORDERED: METHOCARBAMOL 500 MG TABLET PO PRN (23:33)
[2019-10-19] MEDS ORDERED: MAG HYDROX/AL HYDROX/SIMETH 30 ML UNIT-DOSE CUP PO PRN (23:33)
[2019-10-19] MEDS ORDERED: IBUPROFEN 400 MG TABLET (FP) PO PRN (23:33)
[2019-10-20] MEDS: chlordiazePOXIDE HCL 25 MG CAPSULE PO SCH ×4 (05:43→22:29)
[2019-10-20] MEDS: LABETALOL HCL 100 MG TABLET (FP) PO SCH ×3 (07:51→22:29)
[2019-10-20] MEDS ORDERED: levETIRAcetam 500 MG TABLET (FP) PO SCH (10:00)
[2019-10-20] MEDS: PRENATAL VITAMINS W/ FOLIC ACID TABLET (FP) PO SCH (10:10)
[2019-10-20] MEDS: amLODIPine BESYLATE 10 MG TABLET (FP) PO SCH (10:10)
[2019-10-20] MEDS: LISINOPRIL 10 MG TABLET (FP) PO SCH ×2 (10:11→22:29)
[2019-10-20 10:46] LABS: HEMATOCRIT 38.3 % (35.4-49); HEMOGLOBIN 12.8 GM/dL (11.7-16.9); MCH 34.8 pg (25.7-33.7); MCHC 33.4 g/dl (32.0-35.9); MEAN PLT VOLUME 9.3 fl (7.5-11.1); PLATELET COUNT 153 K/MM3 (134-434); RBC 3.68 M/mm3 (4.00-5.60); RDW 14.3 % (11.9-15.9); WHITE BLOOD COUNT 4.4 K/mm3 (4.0-10.0)
[2019-10-20 10:57] LABS: ALBUMIN 3.6 g/dl (3.4-5.0); BILIRUBIN,TOTAL 0.8 mg/dL (0.2-1); BLOOD UREA NITROGEN 7.8 mg/dL (7-18); CALCIUM 8.9 mg/dL (8.5-10.1); CREATININE 0.9 mg/dL (0.55-1.3); POTASSIUM 3.4 mmol/L (3.5-5.1); TOT PROT 6.8 g/dl (6.4-8.2)
--- NOTE | 2019-10-20 15:09 | PN ---
S CIWA - CIWA Score Nausea/Vomitin-Mild Nausea/No Vomiting Muscle Tremors: None Anxiety: 1-Mildly Anxious Agitation: 0-Normal Activity Paroxysmal Sweats: No Perspiration Orientation: 0-Oriented Tacttile Disturbances: 0-None Auditory Disturbances: 0-None Visual Disturbances: 0-None Headache: 0-None Present CIWA-Ar Total Score: 2 BHS Progress Note (SOAP) Subjective: Complaints of cough, clear phlegm. Was at [facility] yesterday with seizure, tx with Librium and Keppa. Never on Keprra before, no prior seizures. Objective: 10/20/19 15:06 Laboratory Tests 10/20/19 10/20/19 08:00 08:00 WBC 4.4 RBC 3.68 L Hgb 12.8 Hct 38.3 MCV 104.0 H MCH 34.8 H MCHC 33.4 RDW 14.3 Plt Count 153 D MPV 9.3 Sodium 138 Potassium 3.4 L Chloride 100 Carbon Dioxide 29 Anion Gap 8 BUN 7.8 Creatinine 0.9 Est GFR (CKD-EPI)AfAm 115.83 Est GFR (CKD-EPI)NonAf 99.94 Random Glucose 89 Calcium 8.9 Total Bilirubin 0.8 AST 52 H ALT 49 Alkaline Phosphatase 78 Total Protein 6.8 Albumin 3.6 Vital Signs (72 hours) 10/19/19 10/20/19 10/20/19 22:17 01:05 03:30 Temperature 99.1 F 98.8 F Pulse Rate 100 H 106 H Respiratory 16 18 18 Rate Blood Pressure 144/103 H 115/79 10/20/19 10/20/19 10/20/19 06:38 06:40 08:36 Temperature 99.8 F H 99.1 F Pulse Rate 93 H 94 H Respiratory 20 18 18 Rate Blood Pressure 153/91 134/82 10/20/19 12:52 Temperature 98.2 F Pulse Rate 92 H Respiratory 18 Rate Blood Pressure 141/93 PE Gn: wdwn, in bed MS: easily aroused, nl mentation Motor; moves all limbs symetrically Assessment: 10/20/19 15:07 1. alcohol use disorder 2. one seizure/yesterday in the context of alcohol use Plan: 1. continue alcohol with drawal protocol 2. d/c Keppra, not indicted at this time
--- NOTE | 2019-10-20 17:09 | CONSULT ---
[facility] Psychiatric Consult - Data Date of interview: 10/20/19 Admission source: [facility] Identifying data: Revisit to [facility] and admission to [address] [place] [address] for this 49 y/o [place]-born male self-referred for detoxification treatment. SHIRA issues : alcohol. Patient is single, no dependents, domiciled (lives with biological mother), unemployed and supported by relatives. Substance Abuse History: Discussed with the patient. Details in current [facility] report as follows : Smoking history: Former smoker. Have you smoked in the past 12 months: No. Aproximately how many cigarettes per day: 0. Cigars Per Day: 0. Hx Chewing Tobacco Use: No. Initiated information on smoking cessation : No. - Substance & Tx. History. Hx Alcohol Use: Yes. Hx Substance Use: No. Substance Use Type: Alcohol. Hx Substance Use Treatment: Yes ( [facility]). - Substances abused. Alcohol. Substance route: Oral. Frequency: Daily. Amount used: 2 pints / 6 packs of beer. Age of first use: 14. Date of last use: 10/19/19 Medical History: Medical profile is remarkable for past treatment for antecedent of witdrawal-related seizures, syphillis + gonorhea, hypertension, and orthosurgery (fracture of left wrist + left knee in 2013). Psychiatric History: Patient denies history of psychiatric hospitalizations, OPD care or suicide attempts. Physical/Sexual Abuse/Trauma History: Patient denies history of abuse. Additional Comment: No toxicology available for review. Mental Status Exam - Mental Status Exam Alert and Oriented to: Time, Place, Person Cognitive Function: Good Patient Appearance: Well Groomed (tall stature) Mood: Withdrawn, Hopeful Affect: Appropriate, Normal Range Patient Behavior: Fatigued, Appropriate, Cooperative Speech Pattern: Clear, Appropriate Voice Loudness: Normal Thought Process: Intact, Goal Oriented Thought Disorder: Not Present Hallucinations: Denies Suicidal Ideation: Denies Homicidal Ideation: Denies Insight/Judgement: Poor Sleep: Well Appetite: Good Gait/Station: Normal Psychiatric Findings - Problem List ([place] 1, 2,3) (1) Alcohol dependence with uncomplicated withdrawal Current Visit: Yes Status: Acute (2) Substance induced mood disorder Current Visit: Yes Status: Chronic - Initial Treatment Plan Initial Treatment Plan: Psychoeducation. Support. Sleep hygiene. Detoxification. MAT services explained to patient. AA meetings. Observation.
[2019-10-20] MEDS: MENTHOL/PHENOL 1 EACH UD MM PRN ×2 (18:31→22:29)
[2019-10-20] MEDS: THIAMINE HCL 100 MG TABLET (FP) PO SCH (22:29)
[2019-10-21] MEDS ORDERED: chlordiazePOXIDE HCL 10 MG CAPSULE PO PRN
[2019-10-21] MEDS: chlordiazePOXIDE HCL 25 MG CAPSULE PO SCH ×2 (00:31→00:32)
[2019-10-21] MEDS: LABETALOL HCL 100 MG TABLET (FP) PO SCH ×3 (05:11→22:04)
[2019-10-21] MEDS: chlordiazePOXIDE HCL 10 MG CAPSULE PO SCH ×4 (05:11→22:04)
[2019-10-21] MEDS: amLODIPine BESYLATE 10 MG TABLET (FP) PO SCH (10:56)
[2019-10-21] MEDS: PRENATAL VITAMINS W/ FOLIC ACID TABLET (FP) PO SCH (10:56)
[2019-10-21] MEDS: LISINOPRIL 10 MG TABLET (FP) PO SCH ×2 (10:56→22:04)
--- NOTE | 2019-10-21 12:26 | PN ---
S CIWA - CIWA Score Nausea/Vomitin-No Nausea/No Vomiting Muscle Tremors: None Anxiety: 2 Agitation: 0-Normal Activity Paroxysmal Sweats: 2 Orientation: 0-Oriented Tacttile Disturbances: 0-None Auditory Disturbances: 0-None Visual Disturbances: 0-None Headache: 2-Mild CIWA-Ar Total Score: 6 BHS Progress Note (SOAP) Subjective: c/o sweats, anxiety, and headache. Objective: 10/21/19 12:23 Vital Signs 10/21/19 10/21/19 06:42 08:44 Temperature 99.2 F 99.3 F Pulse Rate 83 83 Respiratory 18 18 Rate Blood Pressure 134/79 146/85 Laboratory Last Values WBC 4.4 K/mm3 (4.0-10.0) 10/20/19 08:00 RBC 3.68 M/mm3 (4.00-5.60) L 10/20/19 08:00 Hgb 12.8 GM/dL (11.7-16.9) 10/20/19 08:00 Hct 38.3 % (35.4-49) 10/20/19 08:00 MCV 104.0 fl (80-96) H 10/20/19 08:00 MCH 34.8 pg (25.7-33.7) H 10/20/19 08:00 MCHC 33.4 g/dl (32.0-35.9) 10/20/19 08:00 RDW 14.3 % (11.9-15.9) 10/20/19 08:00 Plt Count 153 K/MM3 (134-434) D 10/20/19 08:00 MPV 9.3 fl (7.5-11.1) 10/20/19 08:00 Sodium 138 mmol/L (136-145) 10/20/19 08:00 Potassium 3.4 mmol/L (3.5-5.1) L 10/20/19 08:00 Chloride 100 mmol/L (98-107) 10/20/19 08:00 Carbon Dioxide 29 mmol/L (21-32) 10/20/19 08:00 Anion Gap 8 MMOL/L (8-16) 10/20/19 08:00 BUN 7.8 mg/dL (7-18) 10/20/19 08:00 Creatinine 0.9 mg/dL (0.55-1.3) 10/20/19 08:00 Est GFR (CKD-EPI)AfAm 115.83 10/20/19 08:00 Est GFR (CKD-EPI)NonAf 99.94 10/20/19 08:00 Random Glucose 89 mg/dL (74-106) 10/20/19 08:00 Calcium 8.9 mg/dL (8.5-10.1) 10/20/19 08:00 Total Bilirubin 0.8 mg/dL (0.2-1) 10/20/19 08:00 AST 52 U/L (15-37) H 10/20/19 08:00 ALT 49 U/L (13-61) 10/20/19 08:00 Alkaline Phosphatase 78 U/L (45-117) 10/20/19 08:00 Total Protein 6.8 g/dl (6.4-8.2) 10/20/19 08:00 Albumin 3.6 g/dl (3.4-5.0) 10/20/19 08:00 RPR Titer Nonreactive (NONREACTIVE) 10/20/19 08:00 Labs noted. Assessment: 10/21/19 12:23 AOX 3, in no respiratory distress. Full ROM, ambulating in the unit. Withdrawal symptoms. Plan: Continue detox. Increase fluids.
--- NOTE | 2019-10-21 14:37 | EKG ---
Test Reason : Blood Pressure : / mmHG Vent. Rate : 089 BPM Atrial Rate : 089 BPM P-R Int : 174 ms QRS Dur : 090 ms QT Int : 368 ms P-R-T Axes : 069 032 051 degrees QTc Int : 447 ms NORMAL SINUS RHYTHM NONSPECIFIC ST AND T WAVE ABNORMALITY ABNORMAL ECG Confirmed by MD SARAH, RUDY ([id number]) on 10/21/2019 2:36:33 PM Referred By: Martin Sahu Confirmed By:RUDY SMITH MD
[2019-10-21] MEDS: THIAMINE HCL 100 MG TABLET (FP) PO SCH (22:04)
[2019-10-22] MEDS: LABETALOL HCL 100 MG TABLET (FP) PO SCH ×3 (05:15→22:07)
[2019-10-22] MEDS: chlordiazePOXIDE HCL 10 MG CAPSULE PO SCH ×2 (05:15→17:48)
--- NOTE | 2019-10-22 10:00 | PN ---
S CIWA - CIWA Score Nausea/Vomitin-No Nausea/No Vomiting Muscle Tremors: 1-None Visible, but [place] Anxiety: 1-Mildly Anxious Agitation: 0-Normal Activity Paroxysmal Sweats: 1-Minimal Palms Moist Orientation: 0-Oriented Tacttile Disturbances: 0-None Auditory Disturbances: 0-None Visual Disturbances: 0-None Headache: 0-None Present CIWA-Ar Total Score: 3 BHS Progress Note (SOAP) Subjective: 49 years old male admitted on 10/19/19 for alcohol withdrawal sx management treating with librium detox regiment feeling better today less tremor slept through the night encourage the patient to attend behavior and psychosocial therapies while in detox Objective: 10/22/19 10:01 Vital Signs Temperature 98.9 F 10/22/19 08:45 Pulse Rate 79 10/22/19 08:45 Respiratory Rate 18 10/22/19 08:45 Blood Pressure 149/99 10/22/19 08:45 O2 Sat by Pulse Oximetry (%) Laboratory Last Values WBC 4.4 K/mm3 (4.0-10.0) 10/20/19 08:00 RBC 3.68 M/mm3 (4.00-5.60) L 10/20/19 08:00 Hgb 12.8 GM/dL (11.7-16.9) 10/20/19 08:00 Hct 38.3 % (35.4-49) 10/20/19 08:00 MCV 104.0 fl (80-96) H 10/20/19 08:00 MCH 34.8 pg (25.7-33.7) H 10/20/19 08:00 MCHC 33.4 g/dl (32.0-35.9) 10/20/19 08:00 RDW 14.3 % (11.9-15.9) 10/20/19 08:00 Plt Count 153 K/MM3 (134-434) D 10/20/19 08:00 MPV 9.3 fl (7.5-11.1) 10/20/19 08:00 Sodium 138 mmol/L (136-145) 10/20/19 08:00 Potassium 3.4 mmol/L (3.5-5.1) L 10/20/19 08:00 Chloride 100 mmol/L (98-107) 10/20/19 08:00 Carbon Dioxide 29 mmol/L (21-32) 10/20/19 08:00 Anion Gap 8 MMOL/L (8-16) 10/20/19 08:00 BUN 7.8 mg/dL (7-18) 10/20/19 08:00 Creatinine 0.9 mg/dL (0.55-1.3) 10/20/19 08:00 Est GFR (CKD-EPI)AfAm 115.83 10/20/19 08:00 Est GFR (CKD-EPI)NonAf 99.94 10/20/19 08:00 Random Glucose 89 mg/dL (74-106) 10/20/19 08:00 Calcium 8.9 mg/dL (8.5-10.1) 10/20/19 08:00 Total Bilirubin 0.8 mg/dL (0.2-1) 10/20/19 08:00 AST 52 U/L (15-37) H 10/20/19 08:00 ALT 49 U/L (13-61) 10/20/19 08:00 Alkaline Phosphatase 78 U/L (45-117) 10/20/19 08:00 Total Protein 6.8 g/dl (6.4-8.2) 10/20/19 08:00 Albumin 3.6 g/dl (3.4-5.0) 10/20/19 08:00 RPR Titer Nonreactive (NONREACTIVE) 10/20/19 08:00 lab noted 10/22/19 10:04 bp elevation one dose of lisinopril 20 mg po around 10 pm today patient will returne to primary care neurologist and final installer inspector for dosage adjustment Assessment: 10/22/19 10:05 alcohol withdrawal Plan: librium regiment
[2019-10-22] MEDS ORDERED: LISINOPRIL 10 MG TABLET (FP) PO SCH (10:03)
[2019-10-22] MEDS: amLODIPine BESYLATE 10 MG TABLET (FP) PO SCH (10:20)
[2019-10-22] MEDS: PRENATAL VITAMINS W/ FOLIC ACID TABLET (FP) PO SCH (10:20)
[2019-10-22] MEDS: LISINOPRIL 10 MG TABLET (FP) PO SCH (10:33)
[2019-10-22] MEDS ORDERED: LISINOPRIL 20 MG TABLET (FP) PO ONE (22:00)
[2019-10-22] MEDS: THIAMINE HCL 100 MG TABLET (FP) PO SCH (22:07)
[2019-10-23] MEDS ORDERED: chlordiazePOXIDE HCL 10 MG CAPSULE PO ONE (05:00)
[2019-10-23] MEDS: LABETALOL HCL 100 MG TABLET (FP) PO SCH (06:16)
[2019-10-23 07:20] VITALS: BP 158/92; PULSE 72; TEMP 99.1
--- NOTE | 2019-10-23 11:30 | DS ---
[facility] Detox Discharge Summary Admission Date: 10/19/19 Discharge Date: 10/23/19 - History Present History: Alcohol Dependence Additional Comments: 49 years old male admitted on 10/19/19 for alcohol withdrawal sx management treated with librum detox regiment Mr Lanier has completed the librium regiment and tolerated well seen by psychiatrist no medical intervention at this time patient is alert oriented x 3 cardiac s1s2 regular rate rhythm respiratory clear lungs bilaterally on auscultation abdomen soft round obese no rebound tenderness Pertinent Past History: time for discharge 28 minutes - Physical Exam Results Vital Signs: Vital Signs Temperature 99.1 F 10/23/19 05:50 Pulse Rate 72 10/23/19 05:50 Respiratory Rate 18 10/23/19 05:50 Blood Pressure 158/92 10/23/19 05:50 O2 Sat by Pulse Oximetry (%) Pertinent Admission Physical Exam Findings: alcohol withdrawal Laboratory Last Values WBC 4.4 K/mm3 (4.0-10.0) 10/20/19 08:00 RBC 3.68 M/mm3 (4.00-5.60) L 10/20/19 08:00 Hgb 12.8 GM/dL (11.7-16.9) 10/20/19 08:00 Hct 38.3 % (35.4-49) 10/20/19 08:00 MCV 104.0 fl (80-96) H 10/20/19 08:00 MCH 34.8 pg (25.7-33.7) H 10/20/19 08:00 MCHC 33.4 g/dl (32.0-35.9) 10/20/19 08:00 RDW 14.3 % (11.9-15.9) 10/20/19 08:00 Plt Count 153 K/MM3 (134-434) D 10/20/19 08:00 MPV 9.3 fl (7.5-11.1) 10/20/19 08:00 Sodium 138 mmol/L (136-145) 10/20/19 08:00 Potassium 3.4 mmol/L (3.5-5.1) L 10/20/19 08:00 Chloride 100 mmol/L (98-107) 10/20/19 08:00 Carbon Dioxide 29 mmol/L (21-32) 10/20/19 08:00 Anion Gap 8 MMOL/L (8-16) 10/20/19 08:00 BUN 7.8 mg/dL (7-18) 10/20/19 08:00 Creatinine 0.9 mg/dL (0.55-1.3) 10/20/19 08:00 Est GFR (CKD-EPI)AfAm 115.83 10/20/19 08:00 Est GFR (CKD-EPI)NonAf 99.94 10/20/19 08:00 Random Glucose 89 mg/dL (74-106) 10/20/19 08:00 Calcium 8.9 mg/dL (8.5-10.1) 10/20/19 08:00 Total Bilirubin 0.8 mg/dL (0.2-1) 10/20/19 08:00 AST 52 U/L (15-37) H 10/20/19 08:00 ALT 49 U/L (13-61) 10/20/19 08:00 Alkaline Phosphatase 78 U/L (45-117) 10/20/19 08:00 Total Protein 6.8 g/dl (6.4-8.2) 10/20/19 08:00 Albumin 3.6 g/dl (3.4-5.0) 10/20/19 08:00 Levetiracetam 9.8 MCG/ML (10.0-40.0) L 10/20/19 08:00 RPR Titer Nonreactive (NONREACTIVE) 10/20/19 08:00 lab noted - Treatment Hospital Course: Detox Protocol Followed, Detoxed Safely, Responded well, Discharged Condition Good, Rehab Referral Accepted Patient has Accepted [facility] - Medication Discharge Medications: Ambulatory Orders Amlodipine Besylate [Norvasc -] 10 mg PO DAILY #30 tablet 02/18/18 Labetalol HCl [Normodyne -] 100 mg PO TID #90 tablet 02/18/18 Lisinopril [Prinivil] 10 mg PO BID #60 tablet 02/18/18 levETIRAcetam [Keppra -] 500 mg PO DAILY 10/19/19 - Diagnosis (1) Alcohol dependence with uncomplicated withdrawal Status: Acute (2) Hypertension Status: Chronic Qualifiers: Hypertension type: essential hypertension Qualified Code(s): I10 - Essential (primary) hypertension (3) Nicotine dependence Status: Acute Qualifiers: Nicotine product type: cigarettes Substance use status: in withdrawal Qualified Code(s): F17.213 - Nicotine dependence, cigarettes, with withdrawal (4) Substance induced mood disorder Status: Suspected (5) Syphilis Status: Chronic - AMA Did Patient Leave Against Medical Advice: No CIWA Score - CIWA Score Nausea/Vomitin-No Nausea/No Vomiting Muscle Tremors: 1-None Visible, but [place] Anxiety: 0-No Anxiety, at Ease Agitation: 0-Normal Activity Paroxysmal Sweats: 1-Minimal Palms Moist Orientation: 0-Oriented Tacttile Disturbances: 0-None Auditory Disturbances: 0-None Visual Disturbances: 0-None Headache: 0-None Present CIWA-Ar Total Score: 2
== END 2019-10-23 08:49 | disposition home or self-care (01) | DRG 775 ==
LOC: YASAS 21:32 → Y3N 23:52
PROVIDERS: ADMIT Allergy & Immunology; ATTEND Allergy & Immunology
PROC: HZ2ZZZZ Detoxification Services for Substance Abuse Treatment (ICD-10-PCS; principal; 2019-10-19)
DX: F10.230 Alcohol dependence with withdrawal, uncomplicated (principal); F17.213 Nicotine dependence, cigarettes, with withdrawal; F19.24 Other psychoactive substance dependence with psychoactive substance-induced mood disorder; I10 Essential (primary) hypertension; R56.9 Unspecified convulsions; Z86.19 Personal history of other infectious and parasitic diseases
CPT/HCPCS: 36415; 80053; 80177; 85027; 86593; 93005; 93010

== ENCOUNTER 2022-10-21 13:57 | Emergency (ER) | payer OTHER ==
[2022-10-21] MEDS ORDERED: SODIUM CHLORIDE 1,000 ML IV SCH (14:15)
[2022-10-21 16:07] LABS: BASO % 0.8 % (0-2.0); EOS % 0.6 % (0-4.5); HEMATOCRIT 41.6 % (35.4-49); HEMOGLOBIN 13.9 GM/dL (11.7-16.9); LYMPH % 44.5 % (8-40); MCHC 33.4 g/dl (32.0-35.9); MEAN PLT VOLUME 8.1 fl (7.5-11.1); MONO % 5.2 % (3.8-10.2); NEUT % 48.9 % (42.8-82.8); PLATELET COUNT 178 10^3/uL (134-434); RBC 4.08 M/mm3 (4.00-5.60); RDW 13.9 % (11.9-15.9); WHITE BLOOD COUNT 3.4 K/mm3 (4.0-10.0)
[2022-10-21 16:14] VITALS: TEMP 98.1; BMI 27.4
[2022-10-21 16:15] LABS: INR 1.05 (0.83-1.09); PROTHROMBIN TIME (PATIENT) 12.2 SEC (9.7-13.0)
[2022-10-21 16:18] LABS: ACTIVATED PTT 35.9 SECONDS (25.2-36.5)
[2022-10-21 16:28] LABS: CALCIUM 8.3 mg/dL (8.5-10.1)
[2022-10-21 16:29] LABS: ALBUMIN 3.4 g/dl (3.4-5.0)
[2022-10-21 16:30] LABS: BLOOD UREA NITROGEN 17.9 mg/dL (7-18)
[2022-10-21 16:32] LABS: CREATININE 0.8 mg/dL (0.55-1.3)
[2022-10-21 16:34] LABS: TOT PROT 6.7 g/dl (6.4-8.2)
[2022-10-21 16:35] LABS: BILIRUBIN,TOTAL 0.6 mg/dL (0.2-1)
[2022-10-21 17:11] LABS: PH,URINE 5.5 (5.0-8.0); URINE APPEARANCE CLEAR; URINE BILIRUBIN NEGATIVE (NEGATIVE); URINE COLOR YELLOW; URINE GLUCOSE (UA) NEGATIVE (NEGATIVE); URINE KETONE NEGATIVE (NEGATIVE); URINE LEUK ESTERASE NEGATIVE (NEGATIVE); URINE NITRITE NEGATIVE (NEGATIVE); URINE PROTEIN NEGATIVE (NEGATIVE); URINE UROBILINOGEN 0.2 mg/dL (0.2-1.0)
[2022-10-21 17:19] LABS: OPIATES, URI NEGATIVE (NEGATIVE); PHENCYCLIDINE,URINE NEGATIVE (NEGATIVE)
[2022-10-21 17:36] LABS: COCAINE, UR NEGATIVE (NEGATIVE); METHADONE, UR NEGATIVE (NEGATIVE); URINE AMPHETAMINES NEGATIVE (NEGATIVE); URINE BARBITURATES NEGATIVE (NEGATIVE); URINE BENZODIAZEPINES POSITIVE (NEGATIVE)
[2022-10-21 18:16] VITALS: BP 120/75; PULSE 75; RESP 18
== END 2022-10-21 18:17 | disposition home or self-care (01) ==
LOC: JER 13:57
DX: F10.920 Alcohol use, unspecified with intoxication, uncomplicated (principal)
CPT/HCPCS: 36415; 70450-TC; 80053; 80061; 80177; 80307; 81003; 82550; 82553; 83036; 84484; 85025; 85610; 85730; 93005; 93010; 99285-25

== ENCOUNTER 2024-07-03 10:41 | Inpatient (IN) | payer OTHER ==
[2024-07-03 11:38] VITALS: BMI 29.2
[2024-07-03] MEDS ORDERED: METHOCARBAMOL 500 MG TABLET PO PRN (13:22)
[2024-07-03] MEDS ORDERED: BENZOCAINE/MENTHOL (CHLORASEPTIC ) LOZENGE MM PRN (13:22)
[2024-07-03] MEDS ORDERED: IBUPROFEN 400 MG TABLET (FP) PO PRN (13:22)
[2024-07-03] MEDS ORDERED: BENZONATATE 200 MG CAPSULE PO PRN (13:22)
[2024-07-03] MEDS ORDERED: LOPERAMIDE HCL 2 MG CAPSULE PO PRN (13:22)
[2024-07-03] MEDS ORDERED: NALOXONE (NARCAN) HCL 4 MG/0.1 ML SPRAY NS PRN (13:22)
[2024-07-03] MEDS ORDERED: IBUPROFEN 600 MG TABLET (FP) PO PRN (13:22)
[2024-07-03] MEDS ORDERED: guaiFENesin 600 MG TABLET.ER (FP) PO PRN (13:22)
[2024-07-03] MEDS ORDERED: MAG HYDROX/AL HYDROX/SIMETH 30 ML UNIT-DOSE CUP PO PRN (13:22)
[2024-07-03] MEDS ORDERED: ONDANSETRON *ODT* 4 MG TABLET SL PRN (13:22)
[2024-07-03] MEDS ORDERED: ACETAMINOPHEN 325 MG TABLET (FP) PO PRN (13:22)
[2024-07-03] MEDS ORDERED: DICYCLOMINE HCL 10 MG CAPSULE PO PRN (13:22)
[2024-07-03] MEDS ORDERED: POLYETHYLENE GLYCOL (HEALTHYLAX) 3350 17 GM PACKET PO PRN (13:22)
[2024-07-03] MEDS ORDERED: chlordiazePOXIDE HCL 25 MG CAPSULE PO PRN (13:22)
[2024-07-03] MEDS ORDERED: BISMUTH SUBSALICYLATE 262 MG/15 ML BTL PO PRN (13:22)
[2024-07-03] MEDS ORDERED: HYDROCHLOROTHIAZIDE 12.5 MG CAPSULE (FP) ONE (14:55)
[2024-07-03] MEDS: HYDROCHLOROTHIAZIDE 12.5 MG CAPSULE (FP) PO SCH (14:57)
[2024-07-03] MEDS: NALTREXONE HCL 50 MG TABLET PO ONE (15:39)
[2024-07-03] MEDS: chlordiazePOXIDE HCL 25 MG CAPSULE PO SCH (17:37)
[2024-07-03 18:11] LABS: HIV INTERPRETATION NEGATIVE (NEGATIVE)
[2024-07-03] MEDS: THIAMINE 100 MG TABLET PO SCH (22:19)
[2024-07-03] MEDS: MELATONIN 5 MG TABLETS PO SCH (22:21)
[2024-07-04] MEDS: PRENATAL VITAMINS W/ FOLIC ACID TABLET (FP) PO SCH (09:26)
[2024-07-04] MEDS: amLODIPine BESYLATE 10 MG TABLET (FP) PO SCH (09:29)
[2024-07-04] MEDS: levETIRAcetam 500 MG TABLET (FP) PO SCH ×2 (09:29→22:37)
[2024-07-04] MEDS: NALTREXONE HCL 50 MG TABLET PO SCH (09:29)
[2024-07-04 10:35] LABS: CALCIUM 8.5 mg/dL (8.5-10.1)
[2024-07-04 10:36] LABS: ALBUMIN 3.9 g/dl (3.4-5.0); BLOOD UREA NITROGEN 10.8 mg/dL (7-18); HEMATOCRIT 39.9 % (35.4-49); MCH 34.9 pg (25.7-33.7); MCHC 32.5 g/dl (32.0-35.9); MEAN CELL VOLUME 107.5 fl (80-96); MEAN PLT VOLUME 8.5 fl (7.5-11.1); PLATELET COUNT 254 10^3/uL (134-434); RBC 3.71 M/mm3 (4.00-5.60)
[2024-07-04 10:39] LABS: CREATININE 0.9 mg/dL (0.55-1.3)
[2024-07-04 10:40] LABS: BILIRUBIN,TOTAL 0.4 mg/dL (0.2-1); TOT PROT 7.2 g/dl (6.4-8.2)
[2024-07-04] MEDS: cloNIDine HCL 0.1 MG TABLET PO ONE (13:33)
[2024-07-04] MEDS: hydrOXYzine PAMOATE 25 MG CAPSULE (FP) PO PRN (17:32)
[2024-07-05] MEDS: chlordiazePOXIDE HCL 25 MG CAPSULE PO SCH (05:50)
[2024-07-05] MEDS: HYDROCHLOROTHIAZIDE 25 MG TABLET (FP) PO SCH (10:10)
[2024-07-05] MEDS: MAGNESIUM HYDROX 2400MG/30ML ORAL SUSPENSION 30 ML CUP PO PRN (22:29)
[2024-07-06] MEDS ORDERED: chlordiazePOXIDE HCL 10 MG CAPSULE PO PRN
[2024-07-06] MEDS: chlordiazePOXIDE HCL 10 MG CAPSULE PO SCH (05:40)
[2024-07-07] MEDS: chlordiazePOXIDE HCL 10 MG CAPSULE PO SCH (05:59)
[2024-07-08] MEDS: chlordiazePOXIDE HCL 10 MG CAPSULE PO ONE (05:58)
[2024-07-08] MEDS: NALOXONE (NYS OPIOID OVERDOSE PROGRAM) 4 MG/0.1 ML SPRAY NS PRN (09:07)
[2024-07-08 09:34] VITALS: BP 142/96; PULSE 88; RESP 18; TEMP 97.6
== END 2024-07-08 09:43 | disposition home or self-care (01) | DRG 775 ==
LOC: YASAS 10:41 → Y6N 13:52
PROVIDERS: ADMIT Allergy & Immunology; ATTEND Allergy & Immunology
PROC: HZ2ZZZZ Detoxification Services for Substance Abuse Treatment (ICD-10-PCS; principal; 2024-07-03)
DX: F10.230 Alcohol dependence with withdrawal, uncomplicated (principal); F17.210 Nicotine dependence, cigarettes, uncomplicated; F10.282 Alcohol dependence with alcohol-induced sleep disorder; G40.909 Epilepsy, unspecified, not intractable, without status epilepticus; I10 Essential (primary) hypertension; Z86.19 Personal history of other infectious and parasitic diseases
CPT/HCPCS: 36415; 71046-TC-FY; 80053; 80305; 80307; 83036; 85027; 86780; 86803; 87389; 93005; 93010